=== PATIENT | female | born 1965 | race Two or more races ===

== ENCOUNTER 2020-03-20 16:09 | Observation (INO) | payer OTHER ==
[~2020-03-20] VITALS: Ht 154.9 cm; Wt 72.0 kg
[2020-03-20 18:02] LABS: Basophils # (auto) 0 10 ^3/uL (0-0.2); Basophils % (auto) 0.5 % (0.0-2.0); Eosinophils # (auto) 0.1 10 ^3/uL (0-0.8); Eosinophils % (auto) 0.9 % (0.0-7.0); Hematocrit 43.9 % (36.0-46.0); Hemoglobin 14.3 g/dL (12.2-16.2); Mean Corpuscular Hemoglobin 27.9 pg (28.0-32.0); Mean Corpuscular Hgb Conc. 32.6 g/dL (32.0-36.0); Mean Corpuscular Volume 85.7 fL (80.0-100.0); Monocytes # (auto) 0.6 10 ^3/uL (0-1.3); Monocytes % (auto) 8.9 % (0.0-12.0); Neutrophils # (auto) 4.5 10 ^3/uL (1.6-8.6); Neutrophils % (auto) 61.7 % (37.0-80.0); Platelet Count (auto) 370 10^3/uL (140-450); Red Blood Cells 5.11 10^6/uL (4.0-5.20); Red Cell Distribution Width 13.6 % (11.8-14.3); White Blood Cell 7.2 10^3/uL (4.4-10.8)
[2020-03-20] MEDS ORDERED: methylPREDNISolone SOD SUCC 125 MG/2 ML VL IV ONE (18:15)
[2020-03-20] MEDS ORDERED: AZITHROMYCIN 500MG/ 250ML 250 ML IV ONE (18:15)
[2020-03-20 18:21] LABS: Albumin 3.7 g/dL (3.4-5.0); BUN/Creatinine Ratio 14.9; Calcium 9.1 mg/dL (8.5-10.1); Potassium 3.8 mmol/L (3.5-5.1)
[2020-03-20 18:23] LABS: Bilirubin, Total 0.4 mg/dL (0.2-1.0); Total Protein 7.7 g/dL (6.4-8.2)
[2020-03-20 23:46] LABS: Urine Bacteria FEW /hpf (None Seen); Urine Blood Negative /uL (Negative); Urine Mucus FEW (None Seen); Urine Specific Gravity 1.014 (1.001-1.035); Urine WBC 17 /hpf (0 - 5)
[2020-03-21] MEDS ORDERED: levoFLOXacin 500MG 100 ML IV ONE (03:00)
[2020-03-21] MEDS ORDERED: FUROSEMIDE 40 MG/4 ML VIAL IV ONE (03:00)
[2020-03-21] MEDS ORDERED: LEVO75TA6 PO (06:26)
[2020-03-21] MEDS ORDERED: OMEP-260 PO (06:26)
[2020-03-21] MEDS ORDERED: SOD CHL 0.45% 1,000 ML IV ONE (06:45)
[2020-03-21] MEDS ORDERED: levoFLOXacin 750MG 150 ML IV ONE (06:45)
[2020-03-21] MEDS: ALBUTEROL SULF HFA 90MCG INH 200DOSE IN SCH ×3 (07:43→21:25)
[2020-03-21 08:20] VITALS: BP 109/68
[2020-03-21 09:00] VITALS: BP 121/69
[2020-03-21 09:29] VITALS: BP 105/58
[2020-03-21] MEDS ORDERED: HYDROcodone-ACET 10/325MG TAB PO ONE (11:00)
[2020-03-21] MEDS ORDERED: HYDROcodone-ACET 10/325MG TAB PO PRN (11:00)
[2020-03-21] MEDS ORDERED: guaiFENesin-CODEINE Liq 5 ML UD PO PRN (11:30)
[2020-03-21 11:35] LABS: Basophils # (auto) 0.1 10 ^3/uL (0-0.2); Basophils % (auto) 1.1 % (0.0-2.0); Eosinophils # (auto) 0 10 ^3/uL (0-0.8); Hematocrit 42.9 % (36.0-46.0); Hemoglobin 14.1 g/dL (12.2-16.2); Lymphocytes # (auto) 1.4 10 ^3/uL (0.4-5.4); Lymphocytes % (auto) 20.1 % (10.0-50.0); Mean Corpuscular Hemoglobin 27.9 pg (28.0-32.0); Mean Corpuscular Hgb Conc. 32.9 g/dL (32.0-36.0); Mean Corpuscular Volume 84.7 fL (80.0-100.0); Monocytes # (auto) 0.2 10 ^3/uL (0-1.3); Monocytes % (auto) 2.3 % (0.0-12.0); Neutrophils # (auto) 5.2 10 ^3/uL (1.6-8.6); Neutrophils % (auto) 76.5 % (37.0-80.0); Platelet Count (auto) 366 10^3/uL (140-450); Red Blood Cells 5.07 10^6/uL (4.0-5.20); Red Cell Distribution Width 13.4 % (11.8-14.3); White Blood Cell 6.8 10^3/uL (4.4-10.8)
[2020-03-21] MEDS ORDERED: ENOXAPARIN SOD 40 MG/0.4 ML SYRINGE SC ONE (11:45)
[2020-03-21] MEDS ORDERED: DexAMETHasone SOD PHOS 10MG/1ML VIAL INJ IV ONE (11:45)
[2020-03-21] MEDS ORDERED: ASCORBIC ACID 500 MG TAB PO ONE (11:45)
[2020-03-21] MEDS ORDERED: ZINC SULFATE 220mg CAP or TAB PO ONE (11:45)
[2020-03-21 12:44] LABS: Albumin 3.6 g/dL (3.4-5.0); Calcium 9.4 mg/dL (8.5-10.1); Potassium 3.9 mmol/L (3.5-5.1)
[2020-03-21 12:49] LABS: BUN/Creatinine Ratio 14.1; Bilirubin, Total 0.4 mg/dL (0.2-1.0); Total Protein 7.5 g/dL (6.4-8.2)
[2020-03-21 12:57] LABS: INR 1.07 (0.9-1.15)
[2020-03-21 13:00] VITALS: BP 112/71
[2020-03-21 16:52] VITALS: BP 108/71
[2020-03-21] MEDS: ASCORBIC ACID 500 MG TAB PO SCH (21:20)
[2020-03-21 22:00] VITALS: BP 106/67
[2020-03-22 05:06] VITALS: BP 96/62
[2020-03-22] MEDS: ALBUTEROL SULF HFA 90MCG INH 200DOSE IN SCH ×3 (07:15→22:06)
[2020-03-22 08:00] VITALS: BP 104/72
[2020-03-22] MEDS: ZINC SULFATE 220mg CAP or TAB PO SCH (09:38)
[2020-03-22] MEDS: levoFLOXacin 500MG 100 ML IV SCH (09:38)
[2020-03-22] MEDS: DexAMETHasone SOD PHOS 10MG/1ML VIAL INJ IV SCH (09:38)
[2020-03-22] MEDS: ASCORBIC ACID 500 MG TAB PO SCH ×2 (09:38→21:49)
[2020-03-22] MEDS: ENOXAPARIN SOD 40 MG/0.4 ML SYRINGE SC SCH (09:39)
[2020-03-22 12:00] VITALS: BP 111/57
[2020-03-22 16:58] VITALS: BP 104/65
[2020-03-22 21:36] VITALS: BP 99/66
[2020-03-23 05:00] VITALS: BP 101/61
[2020-03-23] MEDS: ALBUTEROL SULF HFA 90MCG INH 200DOSE IN SCH ×2 (06:46→14:19)
[2020-03-23 08:00] VITALS: BP 108/67
[2020-03-23] MEDS: DexAMETHasone SOD PHOS 10MG/1ML VIAL INJ IV SCH (09:06)
[2020-03-23] MEDS: levoFLOXacin 500MG 100 ML IV SCH (09:06)
[2020-03-23] MEDS: ZINC SULFATE 220mg CAP or TAB PO SCH (09:07)
[2020-03-23] MEDS: ASCORBIC ACID 500 MG TAB PO SCH (09:07)
[2020-03-23] MEDS: ENOXAPARIN SOD 40 MG/0.4 ML SYRINGE SC SCH (09:07)
[2020-03-23 12:00] VITALS: BP 104/58
[2020-03-23 13:23] VITALS: BP 104/58
== END 2020-03-23 22:34 | disposition home or self-care (01) ==
LOC: ER 16:09 → UNDOADMOB 16:10 → OVERFLOW 16:10 → EAST 03-21 15:45 → OVERFLOW 03-21 15:45 → UNDODISOB 03-23 22:34
PROVIDERS: ADMIT Internal Medicine; ATTEND Internal Medicine
DX: U07.1 COVID-19 (principal); J18.1 Lobar pneumonia, unspecified organism; N39.0 Urinary tract infection, site not specified; K21.9 Gastro-esophageal reflux disease without esophagitis; E03.9 Hypothyroidism, unspecified
CPT/HCPCS: 36415; 36600; 71045; 71250; 80053; 81001; 82728; 82805; 83605; 85025; 85610; 86141; 87040; 87426; 94640; 96361; 96365; 96366; 96367; 96372; 96375; 96376; 99284; G0378; J0456; J1100; J1650; J1940; J1956; J2930; J7030

== ENCOUNTER 2022-02-16 11:41 | Emergency (ER) | payer OTHER ==
[~2022-02-16] VITALS: Ht 154.9 cm; Wt 68.2 kg
[~2022-02-16 11:41] MED LIST: LEVO75TA6 PO; OMEP-260 PO
[2022-02-16 12:45] LABS: Albumin 3.8 g/dL (3.4-5.0); Calcium 9.2 mg/dL (8.5-10.1); Potassium 4.4 mmol/L (3.5-5.1)
[2022-02-16 12:48] LABS: BUN/Creatinine Ratio 13.4; Bilirubin, Total 0.5 mg/dL (0.2-1.0)
[2022-02-16 12:51] LABS: Basophils # (auto) 0 10 ^3/uL (0-0.2); Basophils % (auto) 0.6 % (0.0-2.0); Eosinophils # (auto) 0 10 ^3/uL (0-0.8); Eosinophils % (auto) 0.6 % (0.0-7.0); Hematocrit 40.2 % (36.0-46.0); Hemoglobin 13.1 g/dL (12.2-16.2); Lymphocytes # (auto) 2.2 10 ^3/uL (0.4-5.4); Lymphocytes % (auto) 27.1 % (10.0-50.0); Mean Corpuscular Hemoglobin 27.5 pg (28.0-32.0); Mean Corpuscular Hgb Conc. 32.6 g/dL (32.0-36.0); Mean Corpuscular Volume 84.5 fL (80.0-100.0); Monocytes # (auto) 0.5 10 ^3/uL (0-1.3); Neutrophils # (auto) 5.3 10 ^3/uL (1.6-8.6); Neutrophils % (auto) 65.7 % (37.0-80.0); Nucleated Red Blood Cells % 0.1 %; Red Blood Cells 4.75 10^6/uL (4.0-5.20); Red Cell Distribution Width 13.9 % (11.8-14.3); White Blood Cell 8.1 10^3/uL (4.4-10.8)
[2022-02-16] MEDS ORDERED: IPRATROPIUM BROM 0.5 MG/2.5ML INH SOL NEB ONE (16:45)
[2022-02-16] MEDS ORDERED: ALBUTEROL SULF 2.5 MG/0.5ML(0.5%) NEB SOLN NEB ONE (16:45)
[2022-02-16] MEDS ORDERED: methylPREDNISolone SOD SUCC 125 MG/2 ML VL IV ONE (16:45)
[2022-02-16] MEDS ORDERED: PRED20TA2 PO (18:12)
[2022-02-16] MEDS ORDERED: ALBU0.084 NEB (18:12)
[2022-02-16 20:58] VITALS: BP 140/85
== END 2022-02-16 21:59 | disposition home or self-care (01) ==
LOC: ER 11:41
DX: R06.00 Dyspnea, unspecified (principal); Z90.49 Acquired absence of other specified parts of digestive tract
CPT/HCPCS: 36415; 36600; 71046; 80053; 82805; 84484; 85025; 85379; 93005

== ENCOUNTER 2024-02-20 12:21 | Emergency (ER) | payer MEDICAID, OTHER ==
[~2024-02-20] VITALS: Ht 160 cm; Wt 68.0 kg
[~2024-02-20 12:21] MED LIST changes: +ALBU0.084 NEB; -OMEP-260 PO; +OMEP1CAP70 PO; +PRED20TA2 PO
[2024-02-20 13:01] LABS: Basophils # (auto) 0 10 ^3/uL (0-0.2); Basophils % (auto) 0.7 % (0.0-2.0); Eosinophils # (auto) 0 10 ^3/uL (0-0.8); Eosinophils % (auto) 0.5 % (0.0-7.0); Hemoglobin 13.5 g/dL (12.2-16.2); Lymphocytes # (auto) 2.1 10 ^3/uL (0.4-5.4); Mean Corpuscular Hemoglobin 28.9 pg (28.0-32.0); Mean Corpuscular Hgb Conc. 33.7 g/dL (32.0-36.0); Mean Corpuscular Volume 85.7 fL (80.0-100.0); Monocytes # (auto) 0.4 10 ^3/uL (0-1.3); Neutrophils # (auto) 4.1 10 ^3/uL (1.6-8.6); Neutrophils % (auto) 60.8 % (37.0-80.0); Nucleated Red Blood Cells % 0.1 %; Platelet Count (auto) 217 10^3/uL (140-450); Red Blood Cells 4.67 10^6/uL (4.0-5.20); Red Cell Distribution Width 13.6 % (11.8-14.3); White Blood Cell 6.7 10^3/uL (4.4-10.8)
[2024-02-20 13:05] LABS: Urine Bacteria None Seen /hpf (None Seen); Urine WBC None Seen /hpf (0 - 5)
[2024-02-20 13:18] LABS: Chloride 108 mmol/L (98-107); Potassium 4.1 mmol/L (3.5-5.1); Sodium 143 mmol/L (136-145)
[2024-02-20 13:19] LABS: Anion Gap 9 (5-15); Calcium 10.2 mg/dL (8.7-10.4); Carbon Dioxide 26 mmol/L (20-30)
[2024-02-20 13:19] LABS: Urine Blood Negative /uL (Negative); Urine Clarity Clear (Clear); Urine Color Light-Yelow (Yellow); Urine Protein, UAD Negative (Negative); Urine Specific Gravity 1.004 (1.001-1.035); Urine Urobilinogen Normal (Negative); Urine pH 6.5 (5.0-9.0)
[2024-02-20 13:24] LABS: BUN/Creatinine Ratio 13.5 (10.0-20.0); Blood Urea Nitrogen 12 mg/dL (9-23); Glucose 119 mg/dL (74-106)
[2024-02-20 14:16] VITALS: BP 124/72; PULSE 68; RESP 17; TEMP 98.7; O2SAT 99
== END 2024-02-20 14:18 | disposition home or self-care (01) ==
LOC: ER 12:21
DX: R00.2 Palpitations (principal); E03.9 Hypothyroidism, unspecified; K21.9 Gastro-esophageal reflux disease without esophagitis; Z79.899 Other long term (current) drug therapy; Z90.49 Acquired absence of other specified parts of digestive tract; Z88.0 Allergy status to penicillin; Z00.00 Encounter for general adult medical examination without abnormal findings
CPT/HCPCS: 36415; 80048; 81001; 84484; 85025; 93005